=== PATIENT | male | born 1950 | race Caucasian/White ===

== ENCOUNTER 2021-08-17 07:41 | Inpatient (IN) ==
[2021-08-17] MEDS ORDERED: ONDANSETRON 4 MG/2 ML VIAL IV PRN ×2 (08:29→11:33)
[2021-08-17] MEDS: LACTATED RINGERS 1,000 ML IV SCH (08:48)
[2021-08-17 08:59] LABS: INR 1.5; PT Patient Result 16.5 SECS (10.5-12.0)
[2021-08-17] MEDS ORDERED: propofoL 200 MG/20 ML VIAL IV ONE ×2 (10:29→10:36)
[2021-08-17] MEDS ORDERED: LIDOCAINE 2% 5 ML VIAL ONE (10:29)
[2021-08-17] MEDS ORDERED: GLUCAGON 1 MG VIAL IM PRN (11:33)
[2021-08-17] MEDS ORDERED: DEXTROSE 50% 25 GM/50 ML VIAL IV PRN (11:33)
[2021-08-17] MEDS ORDERED: HEPARIN DRIP 25,000 UNITS/500 ML PREMIX IV SCH (13:00)
[2021-08-17] MEDS: ALBUTEROL 2.5 MG/3 ML NEB RESP TX SCH ×2 (15:00→19:54)
[2021-08-17 16:26] LABS: INR 1.5; PT Patient Result 16.2 SECS (10.5-12.0); Partial Thromboplastin Time 29.9 SECS (23.9-33.8)
[2021-08-17] MEDS: HEPARIN DRIP 25,000 UNITS/500 ML PREMIX IV SCH (16:51)
[2021-08-17] MEDS ORDERED: WARFARIN 7.5 MG TABLET PO SCH (17:00)
[2021-08-17] MEDS: WARFARIN 5 MG TABLET PO SCH (17:43)
[2021-08-17 20:54] LABS: INR 1.4; PT Patient Result 15.8 SECS (10.5-12.0); Partial Thromboplastin Time 56.6 SECS (23.9-33.8)
[2021-08-17] MEDS: carvediloL 25 MG TABLET PO SCH (21:15)
[2021-08-17] MEDS: LORazepam 1 MG TABLET PO SCH (21:15)
[2021-08-17] MEDS: SIMVASTATIN 40 MG TABLET PO SCH (21:15)
[2021-08-17] MEDS: SOTALOL 80 MG TABLET PO SCH (21:16)
[2021-08-18] MEDS: ALBUTEROL 2.5 MG/3 ML NEB RESP TX SCH ×4 (01:17→19:10)
[2021-08-18 03:55] LABS: Basophils % 0.7 % (0.0-0.8); Eosinophils # 0.1 10*3/uL (0.0-0.87); Eosinophils % 2.5 % (0.00-10.9); Hematocrit 40.4 VOL% (42.0-52.0); Hemoglobin 13.2 GM/DL (14.0-18.0); Immature Granulocytes % 0.2 %; Immature Granulocytes Absolute 0.01 #; Lymphocytes # 1.4 10*3/uL (1.4-4.0); Lymphocytes % 34.1 % (21.2-54.2); Mean Corpuscular HGB Conc 32.7 GM/DL (32-36); Mean Platelet Volume 10.3 FL (9.6-12.0); Monocytes % 12.3 % (1.7-12.7); Neutrophils % 50.2 % (38.7-73.9); Red Blood Count 4.54 MC/CUMM (3.8-5.5); Red Cell Distribution Width 13.2 % (9.3-17.3); White Blood Count 4.1 T/CUMM (4-12)
[2021-08-18 03:59] LABS: Platelet Count 97 T/CUMM (130-400)
[2021-08-18 04:11] LABS: Calcium 9.3 MG/DL (8.5-10.1); Osmolality,Calculated 284.8 MOS/KG (273-304); Potassium 4.3 MMOL/L (3.5-5.1)
[2021-08-18 04:19] LABS: INR 1.4; PT Patient Result 15.7 SECS (10.5-12.0)
[2021-08-18 04:45] LABS: Atypical Lymphocytes Few; Platelet Estimate Adequate
[2021-08-18] MEDS ORDERED: NON-FORMULARY MEDICATION (Omeprazole 20 MG capsule,delayed release(DR/EC)) PO SCH (09:00)
[2021-08-18] MEDS ORDERED: PANTOPRAZOLE 40 MG TABLET PO SCH (09:00)
[2021-08-18] MEDS ORDERED: DULoxetine 30 MG CAPSULE PO SCH (09:00)
[2021-08-18] MEDS: LORazepam 1 MG TABLET PO SCH ×2 (09:27→21:13)
[2021-08-18] MEDS: SOTALOL 80 MG TABLET PO SCH ×2 (09:28→21:13)
[2021-08-18] MEDS: DICYCLOMINE 10 MG CAPSULE PO SCH (09:28)
[2021-08-18] MEDS: carvediloL 25 MG TABLET PO SCH ×2 (09:28→21:13)
[2021-08-18] MEDS: LACTATED RINGERS 1,000 ML IV SCH (14:08)
[2021-08-18] MEDS: WARFARIN 5 MG TABLET PO SCH (17:18)
[2021-08-18] MEDS: HEPARIN DRIP 25,000 UNITS/500 ML PREMIX IV SCH (18:40)
[2021-08-18] MEDS: DULoxetine 30 MG CAPSULE PO SCH (21:13)
[2021-08-18] MEDS: SIMVASTATIN 40 MG TABLET PO SCH (21:13)
[2021-08-19] MEDS: ALBUTEROL 2.5 MG/3 ML NEB RESP TX SCH ×4 (01:23→20:01)
[2021-08-19 05:07] LABS: Basophils % 0.6 % (0.0-0.8); Eosinophils # 0.1 10*3/uL (0.0-0.87); Eosinophils % 2.9 % (0.00-10.9); Hematocrit 36.6 VOL% (42.0-52.0); Hemoglobin 12.3 GM/DL (14.0-18.0); Immature Granulocytes % 0.3 %; Immature Granulocytes Absolute 0.01 #; Lymphocytes # 1.1 10*3/uL (1.4-4.0); Mean Corpuscular HGB Conc 33.6 GM/DL (32-36); Mean Corpuscular Volume 88.8 FL (87-102); Mean Platelet Volume 10.7 FL (9.6-12.0); Monocytes % 12.1 % (1.7-12.7); Neutrophils % 49.1 % (38.7-73.9); Platelet Count 99 T/CUMM (130-400); Red Blood Count 4.12 MC/CUMM (3.8-5.5); Red Cell Distribution Width 13.2 % (9.3-17.3); White Blood Count 3.1 T/CUMM (4-12)
[2021-08-19 05:15] LABS: INR 1.6; PT Patient Result 17.8 SECS (10.5-12.0)
[2021-08-19] MEDS: PANTOPRAZOLE 40 MG TABLET PO SCH (07:06)
[2021-08-19] MEDS: carvediloL 25 MG TABLET PO SCH ×2 (10:00→21:00)
[2021-08-19] MEDS: SOTALOL 80 MG TABLET PO SCH ×2 (10:00→21:01)
[2021-08-19] MEDS: DICYCLOMINE 10 MG CAPSULE PO SCH (10:01)
[2021-08-19] MEDS: DULoxetine 30 MG CAPSULE PO SCH ×2 (11:12→21:01)
[2021-08-19] MEDS: LORazepam 1 MG TABLET PO SCH ×2 (11:52→21:00)
[2021-08-19] MEDS: WARFARIN 5 MG TABLET PO SCH (18:26)
[2021-08-19] MEDS: SIMVASTATIN 40 MG TABLET PO SCH (21:01)
[2021-08-20] MEDS: ALBUTEROL 2.5 MG/3 ML NEB RESP TX SCH ×4 (01:20→19:58)
[2021-08-20] MEDS: HEPARIN DRIP 25,000 UNITS/500 ML PREMIX IV SCH (01:47)
[2021-08-20 06:08] LABS: Eosinophils # 0.1 10*3/uL (0.0-0.87); Eosinophils % 4.2 % (0.00-10.9); Hematocrit 36.7 VOL% (42.0-52.0); Hemoglobin 12.3 GM/DL (14.0-18.0); Immature Granulocytes % 0.3 %; Immature Granulocytes Absolute 0.01 #; Mean Corpuscular HGB Conc 33.5 GM/DL (32-36); Mean Corpuscular Volume 87.8 FL (87-102); Mean Platelet Volume 10.8 FL (9.6-12.0); Monocytes % 12.6 % (1.7-12.7); Neutrophils % 45.9 % (38.7-73.9); Red Blood Count 4.18 MC/CUMM (3.8-5.5); Red Cell Distribution Width 13.2 % (9.3-17.3); White Blood Count 2.9 T/CUMM (4-12)
[2021-08-20 06:16] LABS: INR 2.1
[2021-08-20] MEDS: PANTOPRAZOLE 40 MG TABLET PO SCH (06:17)
[2021-08-20 06:18] LABS: PT Patient Result 22.8 SECS (10.5-12.0)
[2021-08-20 06:28] LABS: Platelet Count 98 T/CUMM (130-400)
[2021-08-20 06:32] LABS: Hypochromasia 1+; Microcytosis 1+; Platelet Estimate Decreased
[2021-08-20] MEDS: DICYCLOMINE 10 MG CAPSULE PO SCH (10:08)
[2021-08-20] MEDS: carvediloL 25 MG TABLET PO SCH ×2 (10:08→21:28)
[2021-08-20] MEDS: SOTALOL 80 MG TABLET PO SCH ×2 (10:08→21:28)
[2021-08-20] MEDS: LORazepam 1 MG TABLET PO SCH ×2 (10:08→21:28)
[2021-08-20] MEDS: LACTATED RINGERS 1,000 ML IV SCH ×2 (10:53→12:06)
[2021-08-20] MEDS: WARFARIN 5 MG TABLET PO SCH (17:42)
[2021-08-20] MEDS: DULoxetine 30 MG CAPSULE PO SCH (21:28)
[2021-08-20] MEDS: SIMVASTATIN 40 MG TABLET PO SCH (21:28)
[2021-08-21] MEDS: ALBUTEROL 2.5 MG/3 ML NEB RESP TX SCH ×2 (00:49→07:10)
[2021-08-21] MEDS: PANTOPRAZOLE 40 MG TABLET PO SCH (06:07)
[2021-08-21 09:22] LABS: INR 2.6; PT Patient Result 27.2 SECS (10.5-12.0)
[2021-08-21] MEDS: carvediloL 25 MG TABLET PO SCH (09:35)
[2021-08-21] MEDS: LORazepam 1 MG TABLET PO SCH (09:35)
[2021-08-21] MEDS: SOTALOL 80 MG TABLET PO SCH (09:36)
[2021-08-21] MEDS: DICYCLOMINE 10 MG CAPSULE PO SCH (09:36)
[2021-08-21 12:09] VITALS: BP 107/68
[2021-08-21] MEDS: LACTATED RINGERS 1,000 ML IV SCH (15:25)
== END 2021-08-21 14:11 | disposition home or self-care (01) | DRG 395 ==
LOC: SUATTDRO → N.GILAB 07:41 → N.TELEN 07:41 → SUATTDRO 11:33 → N.TELEN 14:47 → SUATTDRO 08-19 17:34
PROVIDERS: ADMIT Internal Medicine Gastroenterology; ATTEND Internal Medicine